=== PATIENT | female | born 1955 | race Hispanic/Latino ===

== ENCOUNTER 2024-08-02 11:45 | Emergency (ER) | payer OTHER ==
--- OUTSIDE RECORDS SUMMARY | 2024-08-02 11:49 | XMS REPORT | Continuity of Care Document ---
Author Name Unknown Address [address] [facility] [place] [address] [facility] Address [address] [facility] [address] [place] [address] Care Team Providers Care Hat Cleaner Name Role Phone CLIVE CASE Primary Care Physician Unavailab MAYKEL James Attending Clinician Unavailab KACEY Carcamo Attending Clinician UnavailSUNIL William Attending Clinician Unavailable Zuniga_F Attending Clinician Unavailable Andria Attending Clinician Unavailable CHIDI FISHER Attending Clinician Unavailable LUISANA SIMMS Attending Clinician Unavailab jessica Lares Attending Clinician Unavailable Hollie Attending Clinician Unavailable DR CLIVE CASE Attending Clinician Unavailable [phone] Attending Clinician Unavailable JASON Attending Clinician Unavailable ISABELL MASSEY Attending Clinician Unavaila karen IHDE_G Attending Clinician Unavailable BHAVANI LARKIN Attending Clinician Unavailmelva e Zunjohanna_S Attending Clinician Unavailable Rae Attending Clinician Unavailable JOHN RAMOS Attending Clinician Unavailab JUSTIN James Attending Clinician Unavaila JAH Herman Attending Clinician Unavailable Sabiha Attending Clinician Unavailable Zuniga_F Admitting Clinician Unavailable Andria Admitting Clinician Unavailable Luda Admitting Clinician Unavailable Hollie Admitting Clinician Unavailable DR CLIVE CASE Admitting Clinician Unavailable ALEXANDREA_ANGIE Admitting Clinician Unavailable IHDE_G Admitting Clinician Unavailable Zunjohanna_S Admitting Clinician Unavailable Rae Admitting Clinician Unavailable JAH SNEED Admitting Clinician Unavailable Sabiha Admitting Clinician Unavailable Payers Payer Name Policy Type Policy Number Effective Date Expirati on Date Source MEDICARE - OP [id number] MEDICARE - OP [id number] MEDICARE - OP [id number] MEDICARE - OP [id number] MEDICARE - OP [id number] MEDICARE - OP [id number] [employer] MEDICARE Medicare [id number] 2024 00:00:00 [place]IG[place] (MEDICARE REPLACEMENT/ADVANTA GE - HMO) [id number] 2022 00:00:00 [place] [id number] [place] [facility] [id number] [place] (MEDIC[place]ACEMENT/ADVANTA GE - HMO) [id number] 2021 00:00:00 [employer] (MEDICARE REPLACEMENT PPO) [id number] 2020 00:00:00 Problems Condition Name Condition Details Condition Category Status Onset Date Resolution Date Last Treatment Date Treating Clinician Comments Source Acute bacterial bronchitis Acute Bacterial Bronchitis Problem Active 2022-04 00:00: 00 [facility] Headache Headache Problem Active 2022-04 00:00: 00 [facility] Pain of left shoulder blade Pain of Left Shoulder Blade Problem Active 2022-04 00:00: 00 [facility] Tobacco dependence caused by cigarettes Tobacco Dependence Caused by Cigarettes Problem Active 10-30 00:00: 00 [facility] Cataract of right eye Cataract of Right Eye Problem Active 10-30 00:00: 00 [facility] Pain co-occurre nt and due to varicose veins of bilateral legs Pain Co-occurre nt and Due to Varicose Veins of Bilateral Legs Problem Active 07-01 00:00: 00 [facility] Pain of right calf Pain of Right Calf Problem Active 07-01 00:00: 00 [facility] Blood in urine Blood in Urine Problem Active 05-11 00:00: 00 [facility] Left flank pain Left Flank Pain Problem Active 05-11 00:00: 00 [facility] Allergies, Adverse Reactions, Alerts Allergy Name Allergy Type Status Severity Reaction(s) Onset Date Inactive Date Treating Clinician Comments Source TRAMADOL HCL Allergy to substanc e Active 2-13 00:00: 00 [facility] Tylenol- codeine #3 Allergy to substanc e Active Irregular heart rate [facility] Tramadol Allergy to substanc e Active Moderate severity Vomiting [facility] TRAMADOL DA Active MODERATE Vomiting [facility] No Known Food Allergie s MA Active UNKNOWN [facility] Social History Smoking Status Start Date Stop Date Source Light Tobacco Smoker [facility] Medications Ordered Medication Name Filled Medication Name Start Date Stop Date Current Medication? Ordering Clinician Indication Dosage Frequency Signature (SIG) Comments Components Source Flonase Allergy Relief 50 mcg/actuati on nasal spray,suspe nsion [place] 1 spray every day by intranasal route for 90 days. Flonase Allergy Relief 50 mcg/actuati on nasal spray,suspe nsion [place] 1 spray every day by intranasal route for 90 days. No 1spray( s) Q1D Flonase Allergy Relief 50 mcg/actuat ion nasal spray,susp ension [place] 1 spray every day by intranasal route for 90 days. [facility] loratadine 10 mg tablet TAKE 1 TABLET BY MOUTH ONCE DAILY loratadine 10 mg tablet TAKE 1 TABLET BY MOUTH ONCE DAILY No 1 Q1D loratadine 10 mg tablet TAKE 1 TABLET BY MOUTH ONCE DAILY [facility] meloxicam 15 mg tablet Take 1 tablet(s) every day by oral route as needed for 90 days. meloxicam 15 mg tablet Take 1 tablet(s) every day by oral route as needed for 90 days. No meloxicam 15 mg tablet Take 1 tablet(s) every day by oral route as needed for 90 days. [facility] pantoprazol e 40 mg tablet,marianne yed release pantoprazol e 40 mg tablet,marianne yed release No pantoprazo le 40 mg tablet,del ayed release [facility] Immunizations Ordered Immunization Name Filled Immunization Name Date Status Comments Source Influenza vaccine, quadrivalent, adjuvanted Influenza vaccine, quadrivalent, adjuvanted Unknown Completed [facility] influenza, unspecified formulation influenza, unspecified formulation Unknown Completed [facility] Pneumococcal conjugate PCV20, polysaccharide [id number] conjugate, adjuvant, PF Pneumococcal conjugate PCV20, polysaccharide [id number] conjugate, adjuvant, PF Unknown Completed [facility] COVID-19, mRNA, LNP-S, PF, 30 mcg/0.3 mL dose (Pfizer-BioNTech) - ML COVID-19, mRNA, LNP-S, PF, 30 mcg/0.3 mL dose (Pfizer-BioNTech) - ML Unknown Completed [facility] pneumococcal conjugate PCV 13 pneumococcal conjugate PCV 13 Unknown Completed [facility] influenza, high dose seasonal influenza, high dose seasonal Unknown Completed [facility] Vital Signs Vital Name Observation Time Observation Value Comments S ource BP Diastolic 2024-04-21 00:00:00 72 mm[Hg] [facility] Body Weight 2024-04-21 00:00:00 2215 [oz_av] [facility] Height 2024-04-21 00:00:00 64 [in_i] [facility] BP Systolic 2024-04-21 00:00:00 140 mm[Hg] [facility] BMI (Body Mass Index) 2024-04-21 00:00:00 23.8 kg/m2 [facility] BP Diastolic 2024-04-14 00:00:00 69 mm[Hg] [facility] BP Systolic 2024-04-14 00:00:00 149 mm[Hg] [facility] BMI (Body Mass Index) 2024-04-14 00:00:00 24.1 kg/m2 [facility] Body Weight 2024-04-14 00:00:00 2247 [oz_av] [facility] Height 2024-04-14 00:00:00 64 [in_i] [facility] BMI (Body Mass Index) 2024-03-28 00:00:00 24.2 kg/m2 [facility] BP Diastolic 2024-03-28 00:00:00 64 mm[Hg] [facility] BP Systolic 2024-03-28 00:00:00 126 mm[Hg] [facility] Height 2024-03-28 00:00:00 64 [in_i] [facility] Body Weight 2024-03-28 00:00:00 2256 [oz_av] [facility] BP Diastolic 2023-12-02 00:00:00 61 mm[Hg] [facility] BP Systolic 2023-12-02 00:00:00 117 mm[Hg] [facility] BMI (Body Mass Index) 2023-12-02 00:00:00 24 kg/m2 [facility] Body Weight 2023-12-02 00:00:00 2240 [oz_av] [facility] Height 2023-12-02 00:00:00 64 [in_i] [facility] Body Weight 2023-07-06 00:00:00 2320 [oz_av] [facility] BP Systolic 2023-07-06 00:00:00 140 mm[Hg] [facility] BMI (Body Mass Index) 2023-07-06 00:00:00 24.9 kg/m2 [facility] BP Diastolic 2023-07-06 00:00:00 75 mm[Hg] [facility] Height 2023-07-06 00:00:00 64 [in_i] [facility] Body Weight 2023-04-16 00:00:00 143.1 [lb_av] [facility] Height 2023-04-16 00:00:00 64 [in_i] [facility] BMI (Body Mass Index) 2023-04-16 00:00:00 24.6 kg/m2 [facility] BP Diastolic 2023-04-16 00:00:00 82 mm[Hg] [facility] BP Systolic 2023-04-16 00:00:00 146 mm[Hg] [facility] BP Systolic 2023-03-04 00:00:00 125 mm[Hg] [facility] BMI (Body Mass Index) 2023-03-04 00:00:00 24.7 kg/m2 [facility] Height 2023-03-04 00:00:00 64 [in_i] [facility] Body Weight 2023-03-04 00:00:00 143.8 [lb_av] [facility] BP Diastolic 2023-03-04 00:00:00 69 mm[Hg] [facility] Body Weight 2023-02-27 00:00:00 2275 [oz_av] [facility] BP Systolic 2023-02-27 00:00:00 130 mm[Hg] [facility] Height 2023-02-27 00:00:00 64 [in_i] [facility] BP Diastolic 2023-02-27 00:00:00 75 mm[Hg] [facility] BMI (Body Mass Index) 2023-02-27 00:00:00 24.4 kg/m2 [facility] Body Weight 2023-02-13 00:00:00 2288 [oz_av] [facility] Height 2023-02-13 00:00:00 64 [in_i] [facility] BP Systolic 2023-02-13 00:00:00 138 mm[Hg] [facility] BP Diastolic 2023-02-13 00:00:00 88 mm[Hg] [facility] BMI (Body Mass Index) 2023-02-13 00:00:00 24.5 kg/m2 [facility] BP Systolic 2023-01-21 00:00:00 137 mm[Hg] [facility] Body Weight 2023-01-21 00:00:00 141.6 [lb_av] [facility] Height 2023-01-21 00:00:00 64 [in_i] [facility] BMI (Body Mass Index) 2023-01-21 00:00:00 24.3 kg/m2 [facility] BP Diastolic 2023-01-21 00:00:00 80 mm[Hg] [facility] Body Weight 2022-12-24 00:00:00 2292 [oz_av] [facility] BP Systolic 2022-12-24 00:00:00 179 mm[Hg] [facility] BP Diastolic 2022-12-24 00:00:00 81 mm[Hg] [facility] BMI (Body Mass Index) 2022-12-24 00:00:00 24.6 kg/m2 [facility] Height 2022-12-24 00:00:00 64 [in_i] [facility] BP Diastolic 2022-10-30 00:00:00 81 mm[Hg] [facility] Height 2022-10-30 00:00:00 64 [in_i] [facility] BMI (Body Mass Index) 2022-10-30 00:00:00 23.8 kg/m2 [facility] BP Systolic 2022-10-30 00:00:00 130 mm[Hg] [facility] Body Weight 2022-10-30 00:00:00 2215 [oz_av] [facility] BP Diastolic 2022-08-28 00:00:00 74 mm[Hg] [facility] Height 2022-08-28 00:00:00 64 [in_i] [facility] BMI (Body Mass Index) 2022-08-28 00:00:00 24.5 kg/m2 [facility] BP Systolic 2022-08-28 00:00:00 167 mm[Hg] [facility] Body Weight 2022-08-28 00:00:00 2288 [oz_av] [facility] BP Diastolic 2022-08-14 00:00:00 73 mm[Hg] [facility] Height 2022-08-14 00:00:00 64 [in_i] [facility] BMI (Body Mass Index) 2022-08-14 00:00:00 24.6 kg/m2 [facility] BP Systolic 2022-08-14 00:00:00 128 mm[Hg] [facility] Body Weight 2022-08-14 00:00:00 2296 [oz_av] [facility] BP Diastolic 2022-07-08 00:00:00 68 mm[Hg] [facility] Height 2022-07-08 00:00:00 64 [in_i] [facility] BMI (Body Mass Index) 2022-07-08 00:00:00 24.2 kg/m2 [facility] BP Systolic 2022-07-08 00:00:00 152 mm[Hg] [facility] Body Weight 2022-07-08 00:00:00 141 [lb_av] [facility] BP Diastolic 2022-06-24 00:00:00 73 mm[Hg] [facility] Height 2022-06-24 00:00:00 64 [in_i] [facility] BMI (Body Mass Index) 2022-06-24 00:00:00 25.1 kg/m2 [facility] BP Systolic 2022-06-24 00:00:00 166 mm[Hg] [facility] Body Weight 2022-06-24 00:00:00 2336 [oz_av] [facility] BP Diastolic 2022-06-11 00:00:00 71 mm[Hg] [facility] Height 2022-06-11 00:00:00 64 [in_i] [facility] BMI (Body Mass Index) 2022-06-11 00:00:00 24.5 kg/m2 [facility] BP Systolic 2022-06-11 00:00:00 130 mm[Hg] [facility] Body Weight 2022-06-11 00:00:00 2288 [oz_av] [facility] BP Diastolic 2021-07-18 00:00:00 74 mm[Hg] [facility] Height 2021-07-18 00:00:00 64 [in_i] [facility] BMI (Body Mass Index) 2021-07-18 00:00:00 25.2 kg/m2 [facility] BP Systolic 2021-07-18 00:00:00 140 mm[Hg] [facility] Body Weight 2021-07-18 00:00:00 2345 [oz_av] [facility] BP Diastolic 2021-07-16 00:00:00 70.01 mm[Hg] [facility] Height 2021-07-16 00:00:00 64 [in_i] [facility] BMI (Body Mass Index) 2021-07-16 00:00:00 25.1 kg/m2 [facility] BP Systolic 2021-07-16 00:00:00 135 mm[Hg] [facility] Body Weight 2021-07-16 00:00:00 2336 [oz_av] [facility] BP Diastolic 2021-07-04 00:00:00 82 mm[Hg] [facility] Height 2021-07-04 00:00:00 64 [in_i] [facility] BMI (Body Mass Index) 2021-07-04 00:00:00 25.4 kg/m2 [facility] BP Systolic 2021-07-04 00:00:00 167 mm[Hg] [facility] Body Weight 2021-07-04 00:00:00 148 [lb_av] [facility] BP Diastolic 2021-07-01 00:00:00 82 mm[Hg] [facility] Height 2021-07-01 00:00:00 64 [in_i] [facility] BMI (Body Mass Index) 2021-07-01 00:00:00 24.9 kg/m2 [facility] BP Systolic 2021-07-01 00:00:00 144 mm[Hg] [facility] Body Weight 2021-07-01 00:00:00 2320 [oz_av] [facility] BP Diastolic 2021-06-18 00:00:00 88 mm[Hg] [facility] Height 2021-06-18 00:00:00 64 [in_i] [facility] BMI (Body Mass Index) 2021-06-18 00:00:00 25.6 kg/m2 [facility] BP Systolic 2021-06-18 00:00:00 149 mm[Hg] [facility] Body Weight 2021-06-18 00:00:00 2386 [oz_av] [facility] BP Diastolic 2020-09-24 00:00:00 72 mm[Hg] [facility] Height 2020-09-24 00:00:00 64 [in_i] [facility] BMI (Body Mass Index) 2020-09-24 00:00:00 25.7 kg/m2 [facility] BP Systolic 2020-09-24 00:00:00 118 mm[Hg] [facility] Body Weight 2020-09-24 00:00:00 2400 [oz_av] [facility] BP Diastolic 2020-08-23 00:00:00 75 mm[Hg] [facility] Height 2020-08-23 00:00:00 64 [in_i] [facility] BMI (Body Mass Index) 2020-08-23 00:00:00 25.6 kg/m2 [facility] BP Systolic 2020-08-23 00:00:00 151 mm[Hg] [facility] Body Weight 2020-08-23 00:00:00 2388 [oz_av] [facility] BP Diastolic 2020-08-14 00:00:00 81 mm[Hg] [facility] Height 2020-08-14 00:00:00 64 [in_i] [facility] BMI (Body Mass Index) 2020-08-14 00:00:00 25.6 kg/m2 [facility] BP Systolic 2020-08-14 00:00:00 133 mm[Hg] [facility] Body Weight 2020-08-14 00:00:00 149 [lb_av] [facility] BP Diastolic 2020-08-01 00:00:00 72 mm[Hg] [facility] Height 2020-08-01 00:00:00 64 [in_i] [facility] BMI (Body Mass Index) 2020-08-01 00:00:00 26 kg/m2 [facility] BP Systolic 2020-08-01 00:00:00 149 mm[Hg] [facility] Body Weight 2020-08-01 00:00:00 151.2 [lb_av] [facility] Procedures Procedure Date / Time Performed Performing Clinician Source MAMMO, screening, digital, bilateral 2024-03-28 00:00:00 [facility] Colonoscopy 2024-02-23 00:00:00 [facility] Endoscopy 2024-01-26 00:00:00 [facility] Resect Inferior Turbinate 2023-04-09 00:00:00 [facility] Repair of Nasal Septum 2023-04-09 00:00:00 [facility] LDCT, chest, for lung cancer screening 2023-02-27 00:00:00 [facility] DEXA 2023-02-27 [facility], screening, digital, bilateral 2023-02-27 00:00:00 [facility] XR, scapula 2023-02-13 00:00:00 [facility] Xcapsl Ctrc Rmvl Cplx Wo Ecp 2022-11-24 00:00:00 [facility] Cataract Surgery 2022-11-24 00:00:00 [facility] Cataract Surgery 2022-10-24 00:00:00 [facility] MAMMO, screening, digital, bilateral 2022-08-14 00:00:00 [facility] DEXA 2022-08-01 00:00:00 [facility] MAMMO, screening, digital, bilateral 2022-08-01 00:00:00 [facility] DEXA 2022-06-27 00:00:00 [facility] MAMMO, screening, digital, bilateral 2022-06-27 00:00:00 [facility] XR, knee 2022-06-11 00:00:00 [facility] DEXA 2022-05-23 00:00:00 [facility] MAMMO, screening, digital, bilateral 2022-05-23 00:00:00 [facility] unlisted imaging order 2021-07-04 00:00:00 [facility] US, doppler, venous 2021-07-01 00:00:00 [facility] MAMMO, screening, digital, bilateral 2020-09-24 00:00:00 [facility] Cholecystectomy [facility] Biopsy of Liver [facility] Operative Procedure on Knee [facility] Hysterectomy [facility] Encounters Start Date/Time End Date/Time Encounter Type Admission Type Attending Clinicians Care Facility Care Department Encounter ID Source 2022-03-28 14:41:17 Outpatient ELCAMPO ELCAMPO [id number] [facility] 2024-05-26 16:45:00 2024-05-26 16:45:00 Outpatient MAYKEL DAS [facility] [id number] [facility] 2024-04-21 00:00:00 2024-04-21 00:00:00 Maykel Cross MD: [address] [place] [address] , Ph. [facility] [id number] [facility] 2024-04-14 00:00:00 2024-04-14 00:00:00 Maykel Cross MD: [address], [place] [address] , Ph. [facility] [id number] [facility] 2024-04-07 13:23:00 2024-04-07 15:48:00 Emergency TR KACEY COATS [facility] [id number] [facility] 2024-03-28 13:41:00 2024-03-28 13:41:00 Outpatient LUZ USNIL SKINNER [facility] [id number] [facility] 2024-03-28 00:00:00 2024-03-28 00:00:00 Maykel Cross MD: [address], [place] [id number] , [place]. [facility] [id number] [facility] 2024-03-23 11:03:51 2024-03-23 14:17:10 Outpatient Elective MHEOUT MHEOUT [id number] [facility] 2023-12-02 00:00:00 2023-12-02 00:00:00 Maykel Cross MD: [address] Jones, [place] [address] , Ph. [facility] [id number] [facility] 2023-07-06 00:00:00 2023-07-06 00:00:00 Maykel Cross MD: [address] [place] [address] , Ph. [facility] [id number] [facility] 2023-07-03 00:00:00 2023-07-03 00:00:00 [place] [id number] [facility] 2023-04-16 00:00:00 2023-04-16 00:00:00 [place] [id number] [facility] 2023-04-16 00:00:00 2023-04-16 00:00:00 Chidi Fisher MD: [address] [place] [address], [address] [address] , [facility]. [facility] [id number] [facility] 2023-04-09 08:10:00 2023-04-09 08:10:00 Outpatient LUZ CHIDI FISHER [facility] [id number] [facility] 2023-04-07 00:00:00 2023-04-07 00:00:00 Outpatient Yan_W [facility] [id number] [facility] 2023-03-26 10:34:00 2023-03-26 10:34:00 Outpatient MAYKEL DAS [facility] [id number] [facility] 2023-03-12 09:43:00 2023-03-12 09:43:00 Outpatient MAYKEL DAS [facility] [id number] [facility] 2023-03-04 00:00:00 2023-03-04 00:00:00 Outpatient Yan_W MMG MMG [id number] [facility] 2023-03-04 00:00:00 2023-03-04 00:00:00 Outpatient Yan_W MMG MMG [id number] [facility] 2023-03-04 00:00:00 2023-03-04 00:00:00 Outpatient Yan_W MMG MMG [id number] [facility] 2023-03-04 00:00:00 2023-03-04 00:00:00 Chidi Fisher MD: [address], [address], [place] [phone] , Ph. [facility] - Otolaryngol ogy-MOB [id number] [facility] 2023-03-03 00:00:00 2023-03-03 00:00:00 Outpatient Yan_W MMG MMG [id number] [facility] 2023-02-27 00:00:00 2023-02-27 00:00:00 Maykel Cross MD: [address], [address], [place] [address] , Ph. MMG [facility] [id number] [facility] 2023-02-25 00:00:00 2023-02-25 00:00:00 Outpatient Yan_W MMG MMG [id number] [facility] 2023-02-17 00:00:00 2023-02-17 00:00:00 Outpatient Yan_W MMG MMG [id number] [facility] 2023-02-13 16:26:00 2023-02-13 16:26:00 Outpatient LUISANA CHRISTENSEN [facility] [id number] [facility] 2023-02-13 00:00:00 2023-02-13 00:00:00 Outpatient Yan_W MMG MMG [id number] [facility] 2023-02-13 00:00:00 2023-02-13 00:00:00 Luisana Simms NP: [address], [address], [place] [address] , Ph. MM[facility] [id number] [facility] 2023-01-21 00:00:00 2023-01-21 00:00:00 Outpatient Yan_W MMG MMG [id number] [facility] 2023-01-21 00:00:00 2023-01-21 00:00:00 Outpatient Yan_W MMG MMG [id number] [facility] 2023-01-21 00:00:00 2023-01-21 00:00:00 Chidi Fisher MD: [address], [address], [place] [address] , Ph. [facility] - Otolaryngol ogy-MOB [id number] [facility] 2023-01-01 00:00:00 2023-01-01 00:00:00 Outpatient Yan_W MMG MMG [id number] [facility] 2022-12-26 00:00:00 2022-12-26 00:00:00 Outpatient Yan_W MMG MMG [id number] [facility] 2022-12-24 00:00:00 2022-12-24 00:00:00 Outpatient Zuniga_F MMG MMG [id number] [facility] 2022-12-24 00:00:00 2022-12-24 00:00:00 Maykel Cross MD: [address], [address], [place] [address] , Ph. MM[facility] [id number] [facility] 2022-10-30 08:55:00 2022-10-30 08:55:00 Outpatient LUISANA CHAVEZ [facility] [id number] [facility] 2022-10-30 00:00:00 2022-10-30 00:00:00 Outpatient Wu_M MMG MMG [id number] [facility] [facility] 2022-10-30 00:00:00 2022-10-30 00:00:00 Luisana Simms, REGULATORY AND COMPLIANCE TECHNICIAN: [address], [address], [place] [address] , Ph. MMG [facility] [id number] [facility] 2022-08-28 00:00:00 2022-08-28 00:00:00 Maykel Cross MD: [address], [address], [place] [address] , Ph. MMG [facility] [id number] [facility] 2022-08-15 08:07:00 2022-08-15 08:07:00 Outpatient MAYKEL DAS [facility] [id number] [facility] 2022-08-14 00:00:00 2022-08-14 00:00:00 Outpatient Zuniga_F MMG MMG [id number] [facility] 2022-08-14 00:00:00 2022-08-14 00:00:00 Outpatient Zuniga_F MMG MMG [id number] [facility] 2022-08-14 00:00:00 2022-08-14 00:00:00 Outpatient Zuniga_F MMG MMG [id number] [facility] 2022-08-14 00:00:00 2022-08-14 00:00:00 Maykel Cross MD: [address], [address], [place] [address] , Ph. MMG [facility] [id number] [facility] 2022-08-02 00:00:00 2022-08-02 00:00:00 Outpatient cMcDonald MMG MMG [id number] [facility] 2022-07-08 00:00:00 2022-07-08 00:00:00 [place] [id number] [facility] 2022-07-08 00:00:00 2022-07-08 00:00:00 Outpatient cMcDonald MMG MMG [id number] [facility] 2022-07-08 00:00:00 2022-07-08 00:00:00 Seng Phoenix MD: [address], [address], [place] [address] , [facility] [place] [facility] [id number] [facility] 2022-06-25 00:00:00 2022-06-25 00:00:00 Outpatient cMcDonald MMG [facility] [id number] [facility] 2022-06-24 00:00:00 2022-06-24 00:00:00 Maykel Cross MD: [address], [address], [place] [address] , [facility]. [facility] [place] [facility] [id number] [facility] 2022-06-12 15:44:00 2022-06-12 15:44:00 Outpatient MAYKEL DAS [facility] [id number] [facility] 2022-06-11 00:00:00 2022-06-11 00:00:00 Outpatient Zuniga_F MMG [facility] [id number] [facility] 2022-06-11 00:00:00 2022-06-11 00:00:00 Outpatient Zuniga_F MMG MMG [id number] [facility] 2022-06-11 00:00:00 2022-06-11 00:00:00 Maykel Cross MD: [address], [address], [place] [address] , Ph. [facility] [id number] [facility] 2022-03-28 14:16:00 2022-03-28 17:10:00 Emergency CLIVE LEON [id number] [facility] EMERGENCY ROOM [id number] [facility] 2021-11-11 00:00:00 2021-11-11 00:00:00 Outpatient CHANELREEN_JUAN [facility] [id number] [facility] 2021-08-08 09:48:00 2021-08-08 09:48:00 Outpatient ISABELL DESIR [facility] [id number] [facility] 2021-07-23 08:15:00 2021-07-23 08:15:00 Outpatient ISABELL DESIR [facility] [id number] [facility] 2021-07-21 01:05:00 2021-07-21 01:05:00 [facility] [id number] [facility] 2021-07-18 02:56:00 2021-07-18 02:56:00 Outpatient Zuniga_F MMG [facility] [id number] [facility] 2021-07-18 02:56:00 2021-07-18 02:56:00 [facility] [id number] [facility] 2021-07-18 00:00:00 2021-07-18 00:00:00 Maykel Cross MD: [address] [place] [address] [address], [place] [address] , Ph. [facility] [id number] [facility] 2021-07-16 14:17:00 2021-07-16 14:17:00 Outpatient MAYKEL DAS [facility] [id number] [facility] 2021-07-16 02:11:00 2021-07-16 02:11:00 [place] [id number] [facility] 2021-07-16 00:00:00 2021-07-16 00:00:00 Maykel Cross MD: [address], [place] [address] , Ph. [facility] [id number] [facility] 2021-07-15 01:04:00 2021-07-15 01:04:00 Outpatient IHDE_G MMG MMG [id number] [facility] 2021-07-08 05:42:00 2021-07-08 05:42:00 Outpatient IHDE_G MMG MMG [id number] [facility] 2021-07-06 19:42:00 2021-07-06 22:05:00 Emergency ER BHAVANI LARKIN [facility] [id number] [facility] 2021-07-05 05:10:00 2021-07-05 05:10:00 Outpatient IHDE_G MMG MMG [id number] [facility] 2021-07-05 01:57:00 2021-07-05 01:57:00 Outpatient IHDE_G MMG MMG [id number] [facility] 2021-07-04 05:13:00 2021-07-04 05:13:00 Outpatient IHDE_G MMG MMG [id number] [facility] 2021-07-04 00:00:00 2021-07-04 00:00:00 Isabell Massey MD: [address], [place] [address] , Ph. [phone] [facility] [id number] [facility] 2021-07-01 15:03:00 2021-07-01 15:03:00 Outpatient UR MAYKEL CROSS [facility] [id number] [facility] 2021-07-01 03:11:00 2021-07-01 03:11:00 Outpatient Zuniga_S MMG [facility] [id number] [facility] 2021-07-01 03:11:00 2021-07-01 03:11:00 Outpatient Zuniga_S MMG [facility] [id number] [facility] 2021-07-01 00:00:00 2021-07-01 00:00:00 KELLY Veliz: [address] [address] , Ph. [facility] [id number] [facility] 2021-06-18 04:16:00 2021-06-18 04:16:00 [facility] [id number] [facility] 2021-06-18 00:00:00 2021-06-18 00:00:00 Maykel Cross MD: [address] [place] [address] , Ph. [facility] [id number] [facility] 2021-05-26 14:54:00 2021-05-26 17:15:00 Emergency ER JOHN RAMOS [facility] [id number] [facility] 2021-05-10 09:00:00 2021-05-10 09:00:00 Outpatient UR CROSSJUSTIN WARD [facility] [id number] [facility] 2021-05-10 04:27:00 2021-05-10 04:27:00 Outpatient Koudela_A MMG [facility] [id number] [facility] 2021-05-10 04:27:00 2021-05-10 04:27:00 Outpatient Koudela_A MMG [facility] [id number] [facility] 2020-11-15 03:41:00 2020-11-15 03:41:00 Outpatient Koudela_A MMG [facility] [id number] [facility] 2020-10-26 14:03:00 2020-10-26 14:03:00 Outpatient MAYKEL DAS [facility] [id number] [facility] 2020-10-03 14:46:00 2020-10-03 14:46:00 Outpatient MAYKEL DAS [facility] [id number] [facility] 2020-09-24 03:49:00 2020-09-24 03:49:00 Outpatient Zuniga_F [facility] [id number] [facility] 2020-09-24 00:00:00 2020-09-24 00:00:00 Maykel Cross MD: [address] [place] [address] , [facility] [id number] [facility] 2020-08-23 02:48:00 2020-08-23 02:48:00 Outpatient Zuniga_F [facility] [id number] [facility] 2020-08-23 00:00:00 2020-08-23 00:00:00 Maykel Cross MD: [address], [place] [address] , Ph. [facility] [id number] [facility] 2020-08-15 01:06:00 2020-08-15 01:06:00 [facility] [id number] [facility] 2020-08-14 14:31:00 2020-08-14 14:31:00 Outpatient EL CHIDI FISHER [facility] [id number] [facility] 2020-08-14 02:33:00 2020-08-14 02:33:00 Outpatient Yan_W MMG MMG [id number] [facility] 2020-08-14 00:00:00 2020-08-14 00:00:00 Chidi Fisher MD: [address], [address], [place] [address] , [facility] [id number] [facility] 2020-08-01 21:04:00 2020-08-02 18:17:00 Inpatient ER JAH SNEED [facility] [id number] [facility] 2020-08-02 01:37:00 2020-08-02 01:37:00 Outpatient Yan_W MMG MMG [id number] [facility] 2020-08-01 02:49:00 2020-08-01 02:49:00 Outpatient Yan_W MMG MMG [id number] [facility] 2020-08-01 00:00:00 2020-08-01 00:00:00 Chidi Fisher MD: [address], [place] [address] , [facility]. [facility] [id number] [facility] 2020-07-31 04:00:00 2020-07-31 04:00:00 Outpatient Yan_W MMG MMG [id number] [facility] 2020-07-20 11:32:00 2020-07-20 11:32:00 Outpatient White_M MMG MMG [id number] [facility] Results Test Description Test Time Test Comments Results Result Co mments Source [facility] [id number] 13:39:00* Test Item Value Reference Range Interpretation Comme [facility] blood collection (test code = [facility] blood collection) [facility] 2000 [facility] - Serum or Plasma 2023-04-03 10:26:00* Test Item Value Reference Range Interpretation Comme [facility] glucose (test code = glucose) 100 mg/dL 82-115 blood urea nitrogen (test co de = blood urea nitrogen) 16 mg/dL 8-23 osmolality calculated,serum (test code = osmolality calculated,serum) 281 mOsm/kg 280-300 creatinine (test code = creatinine) 0.60 mg/dL 0.50-0.90 glomerular filtration rate ( test code = glomerular filtration rate) > 60.00 BUN/creatinine ratio (test c ode = BUN/creatinine ratio) 26.7 12.0-20.0 H sodium level (test code = so dium level) 140 mmol/L 135-145 potassium level (test code = potassium level) 4.0 mmol/L 3.5-5.2 chloride level (test code = chloride level) 106 mmol/L 98-108 CO2 (test code = CO2) 24 mmol/L 21-32 anion gap (test code = anion gap) 14.0 mEq/L 12.0-20.0 calcium level (test code = calcium level) 9.7 mg/dL 8.8-10.2 total protein (test code = t otal protein) 6.3 g/dL 6.6-8.7 L albumin (test code = albumin) 4.0 g/dL 3.5-5.2 globulin (test code = globulin) 2.3 g/dL 1.5-4.5 A/G ratio (test code = A/G ratio) 1.7 >1.0 bilirubin,total (test code = bilirubin,total) 0.4 mg/dL 0.0-1.2 AST/SGOT (test code = AST/SGOT) 21 U/L 15-32 ALT/SGPT (test code = ALT/SGPT) 13 U/L 0-33 alkaline phosphatase, total (test code = alkaline phosphatase, total) 99 U/L 35-105 [id number] 10:21:00* Test Item Value Reference Range Interpretation Comme nts prothrombin time (test code = prothrombin time) 10.4 seconds 10.3-12.3 INR (test code = INR) < 0.94 [facility] [id number] 10:21:00* Test Item Value Reference Range Interpretation Comme nts partial thromboplastin time (test code = partial thromboplastin time) 28.2 seconds 22.5-37.0 [facility] W Auto Differential panel - [id number] 10:07:00 * Test Item Value Reference Range Interpretation Comme nts white blood count (test code = white blood count) 5.4 K/uL 4.0-11.5 red blood count (test code = red blood count) 3.90 M/uL 3.80-5.20 hemoglobin (test code = hemoglobin) 12.0 g/dL 10.5-15.7 hematocrit (test code = hematocrit) 36.1 % 34.0-50.0 mean corpuscular volume (conrad t code = mean corpuscular volume) 92.6 fL 86.0-100.0 mean corpuscular hemoglobin (test code = mean corpuscular hemoglobin) 30.8 pg 26.2-33.4 mean corpuscular HGB conc (t est code = mean corpuscular HGB conc) 33.2 g/dL 30.0-34.0 red cell distribution width (test code = red cell distribution width) 13.2 % 12.0-15.5 platelet count (test code = platelet count) 167 K/uL 165-450 mean platelet volume (test c ode = mean platelet volume) 9.1 fL 9.4-12.6 L neutrophils % (test code = neutrophils %) 53.5 % 44.4-80.1 Ig% (test code = Ig%) 0.6 % 0.0-0.4 H lymphocyte% (test code = lymphocyte%) 25.6 % 10.0-50.0 mono % (test code = mono %) 7.8 % 3.6-12.0 eos % (test code = eos %) 11.9 % 0.0-5.4 H basophil % (test code = baso reva %) 0.6 % 0.1-1.2 absolute neutrophil count (t est code = absolute neutrophil count) 2.87 K/uL 1.56-6.13 Ig# (test code = Ig#) 0.03 K/uL 0.00-0.03 lymph # (test code = lymph #) 1.37 K/uL 1.18-3.74 mono # (test code = mono #) 0.42 K/uL 0.24-0.86 eos # (test code = eos #) 0.64 K/uL 0.04-0.36 H basophil # (test code = baso reva #) 0.03 K/uL 0.01-0.08 NRBC% (test code = NRBC%) 0 /100 WBC 0-0.2 NRBC# (test code = NRBC#) 0 K/uL [facility]*2023-02-13 15:28:21* Test Item Value Reference Range Interpretation Comme nts R Eye Uncorrected (test code = R Eye Uncorrected) 20/20 L Eye Uncorrected (test code = L Eye Uncorrected) 20/20 [facility] W Auto Differential panel - [id number] 09:14:00 * Test Item Value Reference Range Interpretation Comme nts white blood count (test code = white blood count) 5.1 K/uL 4.0-11.5 red blood count (test code = red blood count) 4.58 M/uL 3.80-5.20 hemoglobin (test code = hemoglobin) 12.3 g/dL 10.5-15.7 hematocrit (test code = hematocrit) 38.2 % 34.0-50.0 mean corpuscular volume (conrad t code = mean corpuscular volume) 83.4 fL 86.0-100.0 L mean corpuscular hemoglobin (test code = mean corpuscular hemoglobin) 26.9 pg 26.2-33.4 mean corpuscular HGB conc (t est code = mean corpuscular HGB conc) 32.2 g/dL 30.0-34.0 red cell distribution width (test code = red cell distribution width) 22.6 % 12.0-15.5 H platelet count (test code = platelet count) 154 K/uL 165-450 L mean platelet volume (test c ode = mean platelet volume) 8.6 fL 9.4-12.6 L neutrophils % (test code = neutrophils %) 47.5 % 44.4-80.1 Ig% (test code = Ig%) 0.4 % 0.0-0.4 lymphocyte% (test code = lymphocyte%) 30.4 % 10.0-50.0 mono % (test code = mono %) 7.9 % 3.6-12.0 eos % (test code = eos %) 13.0 % 0.0-5.4 H basophil % (test code = baso reva %) 0.8 % 0.1-1.2 absolute neutrophil count (t est code = absolute neutrophil count) 2.40 K/uL 1.56-6.13 Ig# (test code = Ig#) 0.02 K/uL 0.00-0.03 lymph # (test code = lymph #) 1.54 K/uL 1.18-3.74 mono # (test code = mono #) 0.40 K/uL 0.24-0.86 eos # (test code = eos #) 0.66 K/uL 0.04-0.36 H basophil # (test code = baso reva #) 0.04 K/uL 0.01-0.08 NRBC% (test code = NRBC%) 0 /100 WBC 0-0.2 NRBC# (test code = NRBC#) 0 K/uL [facility] stimulating hormone [id number] 14:02:00* Test Item Value Reference Range Interpretation Comme nts thyroid stimulating hormone L (test code = thyroid stimulating hormone L) 1.42 uIU/mL 0.36-3.74 [id number] 14:02:00* Test Item Value Reference Range Interpretation Comme nts T4 (test code = T4) 7.5 ug/dL 4.5-11.7 [facility]/TIBC [id number] 14:01:00* Test Item Value Reference Range Interpretation Comme nts iron (fe) (test code = iron (fe)) 13 ug/dL 37-145 L total iron binding capacity (test code = total iron binding capacity) 352 ug/dL 260-445 % saturation (test code = % saturation) 4 % 12-45 L [facility] 2000 panel - Serum or Plasma 2022-08-15 14:00:00* Test Item Value Reference Range Interpretation Comme nts glucose (test code = glucose) 94 mg/dL 82-115 blood urea nitrogen (test co de = blood urea nitrogen) 16 mg/dL 8-23 osmolality calculated,serum (test code = osmolality calculated,serum) 286 mOsm/kg 280-300 creatinine (test code = creatinine) 0.71 mg/dL 0.50-0.90 glomerular filtration rate ( test code = glomerular filtration rate) > 60.00 BUN/creatinine ratio (test c ode = BUN/creatinine ratio) 22.5 12.0-20.0 H sodium level (test code = so dium level) 143 mmol/L 135-145 potassium level (test code = potassium level) 3.9 mmol/L 3.5-5.2 chloride level (test code = chloride level) 109 mmol/L 98-108 H CO2 (test code = CO2) 24 mmol/L 21-32 anion gap (test code = anion gap) 13.9 mEq/L 12.0-20.0 calcium level (test code = calcium level) 9.0 mg/dL 8.8-10.2 total protein (test code = t otal protein) 6.2 g/dL 6.6-8.7 L albumin (test code = albumin) 3.9 g/dL 3.5-5.2 globulin (test code = globulin) 2.3 g/dL 1.5-4.5 A/G ratio (test code = A/G ratio) 1.7 >1.0 bilirubin,total (test code = bilirubin,total) 0.4 mg/dL 0.0-1.2 AST/SGOT (test code = AST/SGOT) 13 U/L 15-32 L ALT/SGPT (test code = ALT/SGPT) 7 U/L 0-33 alkaline phosphatase, total (test code = alkaline phosphatase, total) 101 U/L 35-105 [facility] [id number] 14:00:00* Test Item Value Reference Range Interpretation Comme nts cholesterol level (test code = cholesterol level) 189 mg/dL 150-200 triglycerides level (test co de = triglycerides level) 86 mg/dL <150 HDL cholesterol (test code = HDL cholesterol) 52 mg/dL >65 L Cholesterol in LDL [Mass/vol ume] in Serum or Plasma (test code = 2089-1) 125 mg/dL <100 H cholesterol risk ratio (test code = cholesterol risk ratio) 3.634 [facility]in2023-[facility] 14:00:00* Test Item Value Reference Range Interpretation Comme nts ferritin (test code = ferritin) < 28.5 13-150 [facility] [id number] 13:56:00* Test Item Value Reference Range Interpretation Comme nts Hemoglobin A1c/Hemoglobin.to [place] in Blood (test code = 4548-4) 5.6 % 4.0-6.0 [facility] W Auto Differential panel - [id number] 13:29:00 * Test Item Value Reference Range Interpretation Comme nts white blood count (test code = white blood count) 4.1 K/uL 4.0-11.5 red blood count (test code = red blood count) 3.90 M/uL 3.80-5.20 hemoglobin (test code = hemoglobin) 7.3 g/dL 10.5-15.7 L hematocrit (test code = hematocrit) 26.5 % 34.0-50.0 L mean corpuscular volume (conrad t code = mean corpuscular volume) 67.9 fL 86.0-100.0 L mean corpuscular hemoglobin (test code = mean corpuscular hemoglobin) 18.7 pg 26.2-33.4 L mean corpuscular HGB conc (t est code = mean corpuscular HGB conc) 27.5 g/dL 30.0-34.0 L red cell distribution width (test code = red cell distribution width) 17.0 % 12.0-15.5 H platelet count (test code = platelet count) 282 K/uL 165-450 mean platelet volume (test c ode = mean platelet volume) 9.4 fL 9.4-12.6 neutrophils % (test code = neutrophils %) 54.7 % 44.4-80.1 Ig% (test code = Ig%) 0.2 % 0.0-0.4 lymphocyte% (test code = lymphocyte%) 24.1 % 10.0-50.0 mono % (test code = mono %) 8.3 % 3.6-12.0 eos % (test code = eos %) 12.0 % 0.0-5.4 H basophil % (test code = baso reva %) 0.7 % 0.1-1.2 absolute neutrophil count (t est code = absolute neutrophil count) 2.24 K/uL 1.56-6.13 Ig# (test code = Ig#) 0.01 K/uL 0.00-0.03 lymph # (test code = lymph #) 0.99 K/uL 1.18-3.74 L mono # (test code = mono #) 0.34 K/uL 0.24-0.86 eos # (test code = eos #) 0.49 K/uL 0.04-0.36 H basophil # (test code = baso reva #) 0.03 K/uL 0.01-0.08 NRBC% (test code = NRBC%) 0 /100 WBC 0-0.2 NRBC# (test code = NRBC#) 0 K/uL [facility] HospitalCyclic citrullinated peptide IgA+IgG Ab [Units/volume] in Serum or Plasma by [id number] 15:14:00* Test Item Value Reference Range Interpretation Comme nts ccp antibodies IgG/IgA (test code = ccp antibodies IgG/IgA) 3 units 0-19 [facility] HospitalRheumatoid factor [Units/volume] in Serum or Plasma 2022-06-12 17:21:00* Test Item Value Reference Range Interpretation Comme nts rheum factor (test code = rheum factor) < 10 0-14 [facility] metabolic [id number] 17:20:00* Test Item Value Reference Range Interpretation Comme nts glucose (test code = glucose) 131 mg/dL 82-115 H blood urea nitrogen (test co de = blood urea nitrogen) 18 mg/dL 8-23 osmolality calculated,serum (test code = osmolality calculated,serum) 278 mOsm/kg 280-300 L creatinine (test code = creatinine) 0.67 mg/dL 0.50-0.90 glomerular filtration rate ( test code = glomerular filtration rate) > 60.00 BUN/creatinine ratio (test c ode = BUN/creatinine ratio) 26.9 12.0-20.0 H sodium level (test code = so dium level) 137 mmol/L 135-145 potassium level (test code = potassium level) 3.8 mmol/L 3.5-5.2 chloride level (test code = chloride level) 101 mmol/L 98-108 CO2 (test code = CO2) 26 mmol/L 21-32 anion gap (test code = anion gap) 13.8 mEq/L 12.0-20.0 calcium level (test code = calcium level) 9.3 mg/dL 8.8-10.2 [facility] [id number] 17:20:00* Test Item Value Reference Range Interpretation Comme [facility] uric acid (test code = uric acid) 4.2 mg/dL 2.4-5.7 [facility] W Auto Differential panel - [id number] 12:34:00 * Test Item Value Reference Range Interpretation Comme [facility] white blood count (test code = white blood count) 5.1 K/uL 4.0-11.5 red blood count (test code = red blood count) 4.80 M/uL 3.80-5.20 hemoglobin (test code = hemoglobin) 10.0 g/dL 10.5-15.7 L hematocrit (test code = hematocrit) 34.4 % 34.0-50.0 MCV [Entitic volume] (test c ode = 00806-8) 71.7 fL 86-100 L mean corpuscular hemoglobin (test code = mean corpuscular hemoglobin) 20.8 pg 26.2-33.4 L mean corpuscular HGB conc (t est code = mean corpuscular HGB conc) 29.1 g/dL 30-34 L red cell distribution width (test code = red cell distribution width) 30.6 % 12.0-15.5 H platelet count (test code = platelet count) 236 K/uL 165-450 Platelets reticulated/100 platelets in Blood by Automated count (test code = 55862-8) 3.0 % 0-8 mean platelet volume (test c ode = mean platelet volume) 10.0 fL 9.4-12.6 Segmented neutrophils/100 leukocytes in Blood (test code = 98579-5) 38.7 % 44.4-80.1 L Immature granulocytes [#/vol ume] in Blood (test code = 01619-3) 0.0 K/uL 0.0-0.03 lymphocyte% (test code = lymphocyte%) 36.6 % 10.0-50.0 mono % (test code = mono %) 7.5 % 3.6-12.0 eos % (test code = eos %) 16.4 % 0.0-5.4 H Basophils/100 leukocytes in Unspecified specimen (test code = 79869-8) 0.6 % 0.1-1.2 Band form neutrophils [#/vol ume] in Blood (test code = 01366-0) 1.95 K/uL 1.56-6.13 Lymphocytes [#/volume] in Unspecified specimen by Automated count (test code = 18458-9) 1.9 K/uL 1.18-3.74 mono # (test code = mono #) 0.38 K/uL 0.24-0.86 eos # (test code = eos #) 0.83 K/uL 0.04-0.36 H basophil # (test code = baso reva #) 0.03 K/uL 0.01-0.08 NRBC% (test code = NRBC%) 0 /100 WBC 0-0.2 NRBC# (test code = NRBC#) 0 K/uL [facility] HospitalDifferential panel, method unspecified - [id number] 12:34:00NeutrophilsBandLymphocyteAtypical LymphMonocyteEosinophilBasophilMetamyelocyteMyelocyteAbs Neutrophil Count (Man)Abs Lymph Count (Man)Abs Monocyte Count (Man)Abs Eosinophil Count (Man)Abs Basophil Count (Man)Platelet EstimatePlatelet MorphologyAnisocytosisRouleauToxic VacuolationOcean [facility] HospitalComprehensive metabolic 2000 panel - Serum or [id number] 12:34:00* Test Item Value Reference Range Interpretation Comme nts Glucose [Mass/volume] in Ser um or Plasma (test code = 2345-7) 93 mg/dL 82-115 Urea nitrogen [Mass/volume] in Serum or Plasma (test code = 3094-0) 15 mg/dL 8-23 osmolality calculated,serum (test code = osmolality calculated,serum) 282 mOsm/kg 280-300 creatinine (test code = creatinine) 0.6 mg/dL 0.50-0.90 glomerular filtration rate ( test code = glomerular filtration rate) >60.00 Urea nitrogen/Creatinine [Ma ss Ratio] in Serum or Plasma (test code = 3097-3) 25.0 12-20 H sodium level (test code = so dium level) 141 mmol/L 135-145 potassium level (test code = potassium level) 4.0 mmol/L 3.5-5.2 chloride level (test code = chloride level) 108 mmol/L 98-108 CO2 (test code = CO2) 26 mmol/L 21-32 anion gap (test code = anion gap) 11.0 mEq/L 12-20 L calcium level (test code = calcium level) 9.7 mg/dL 8.8-10.2 total protein (test code = t otal protein) 6.8 g/dL 6.6-8.7 albumin (test code = albumin) 4.1 g/dL 3.5-5.2 globulin (test code = globulin) 2.7 gm/dL A/G ratio (test code = A/G ratio) 1.5 >1.0 bilirubin,total (test code = bilirubin,total) <0.3 0.0-1.2 AST/SGOT (test code = AST/SGOT) 23 U/L 15-32 Alanine aminotransferase [Enzymatic activity/volume] in Serum or Plasma (test code = 1742-6) 16 U/L 0-33 Alkaline phosphatase [Enzyma tic activity/volume] in Serum or Plasma (test code = 6768-6) 138 U/L 35-105 H [facility] [Mass/volume] in Serum or [id number] 12:34:00 * Test Item Value Reference Range Interpretation Comme nts iron (fe) (test code = iron (fe)) 39 ug/dL 37-145 [facility] and Iron binding capacity panel - Serum or Plasma 2020-08-14 12:34:00* Test Item Value Reference Range Interpretation Comme nts total iron binding capacity (test code = total iron binding capacity) 315 ug/dL 260-445 Iron saturation [Molar fract ion] in Serum or Plasma (test code = 21584-8) 12 % 12-45 [facility] - [id number] 12:35:00 * Test Item Value Reference Range Interpretation Comme nts white blood count (test code = white blood count) 7.3 K/uL 4.0-11.5 red blood count (test code = red blood count) 3.51 M/uL 3.80-5.20 L hemoglobin (test code = hemoglobin) 5.8 g/dL 10.5-15.7 L hematocrit (test code = hematocrit) 21.5 % 34.0-50.0 L MCV [Entitic volume] (test c ode = 34057-0) 61.3 fL 86-100 L mean corpuscular hemoglobin (test code = mean corpuscular hemoglobin) 16.5 pg 26.2-33.4 L mean corpuscular HGB conc (t est code = mean corpuscular HGB conc) 27.0 g/dL 30-34 L red cell distribution width (test code = red cell distribution width) 18.9 % 12.0-15.5 H platelet count (test code = platelet count) 318 K/uL 165-450 mean platelet volume (test c ode = mean platelet volume) 9.8 fL 9.4-12.6 NRBC% (test code = NRBC%) 0 /100 WBC 0-0.2 NRBC# (test code = NRBC#) 0 K/uL [facility], method unspecified - [id number] 12:35:00* Test Item Value Reference Range Interpretation Comme nts Neutrophils [#/volume] in Bl ood by Automated count (test code = 751-8) 63 % 37.0-80.0 Band form neutrophils/100 leukocytes in Blood by Manual count (test code = 764-1) 0 % 0-3 lymphocyte (test code = lymphocyte) 27 % 10-50 atypical lymph (test code = atypical lymph) 0 % Monocytes [#/volume] in Bloo d by Manual count (test code = 743-5) 5 % 0-12 eosinophil (test code = eosinophil) 5 % 0-7 Basophils/100 leukocytes in Unspecified specimen by Manual count (test code = 40011-0) 0 % 0-3 metamyelocyte (test code = metamyelocyte) myelocyte (test code = myelocyte) abs neutrophil count (man) ( test code = abs neutrophil count (man)) 4.50 K/uL 1.56-6.13 abs lymph count (man) (test code = abs lymph count (man)) 1.90 K/uL 1.32-3.57 abs monocyte count (man) (te st code = abs monocyte count (man)) 0.30 K/uL 0.24-0.86 abs eosinophil count (man) ( test code = abs eosinophil count (man)) 0.30 K/uL 0.04-0.36 abs basophil count (man) (te st code = abs basophil count (man)) 0.00 K/uL 0.01-0.08 L Platelets [#/volume] in Bloo d by Automated count (test code = 777-3) normal normal Hypochromia [Presence] in Bl ood (test code = 24657-2) =2 H poikilocytosis (test code = poikilocytosis) =1 Anisocytosis [Presence] in B lood (test code = 16935-5) =1 H microcytosis (test code = microcytosis) =1 Ovalocytes [Presence] in Blo od by Light microscopy (test code = 774-0) =1 H Toxic granules [Presence] in Blood by Light microscopy (test code = 803-7) nicole cells (test code = nicole cells) occassional H Neutrophils.hypersegmented [#/volume] in Blood (test code = 01522-4) Rouleaux [Presence] in Blood by Light microscopy (test code = 7797-4) Leukocyte toxic vacuoles [Presence] in Blood by Light microscopy (test code = 42003-8) Smudge cells [Presence] in B lood by Light microscopy (test code = 7798-2) [facility] [Mass/volume] in Serum or [id number] 12:35:00* Test Item Value Reference Range Interpretation Comme nts Pyridoxine [Mass/volume] in Serum or Plasma (test code = 2900-9) 3.0 ug/L 2.0-32.8 [facility]
[2024-08-02 12:32] LABS: Absolute Eosinophils 0.3 K/uL (0-0.5); Absolute Lymphocytes (CBC) 0.9 K/uL (0.7-4.9); Absolute Monocytes 0.5 K/uL (0.1-1.3); Absolute Neutrophil 6.7 K/uL (1.8-8.0); Basophils % 0.3 % (0-1.3); Eosinophils % 4.1 % (0-4.4); Hematocrit 33.9 % (36.0-45.0); Hemoglobin 11.9 g/dL (12.0-15.0); Lymphocytes % 10.8 % (15.3-44.8); MCH 32.1 pg (27.0-35.0); MCHC 34.9 g/dL (32.0-36.0); MCV 91.8 fL (80-100); MPV 7.4 fL (7.6-11.3); Monocytes % 5.9 % (3.3-12.3); Neutrophils % 78.9 % (41.7-73.7); Platelets 254 thou/uL (152-406); Red Cell Distribution Width 13.4 % (12.1-15.2)
[2024-08-02 12:35] LABS: PT Prothrombin Time 12.1 SECONDS (10-13.0); Protime INR 1.06
[2024-08-02 12:48] LABS: Anion Gap 7.8 mEq/L (5.0-15.0); Potassium 3.8 mEq/L (3.5-5.1); Troponin High Sensitivity 4.8 pg/mL (<58.9)
--- NOTE | 2024-08-02 12:53 | RAD REPORT ---
EXAMINATION: ONE VIEW CHEST XR CLINICAL INDICATION: CHEST PAIN TECHNIQUE: Frontal chest projection is submitted. Examination is limited by patient positioning and t echnique. COMPARISON: No prior exam. FINDINGS: The lungs are well inflated and clear. The heart is moderately enlarged. No displaced fractures ident ified. Moderate hiatal hernia. IMPRESSION: No acute intrathoracic abnormalities.
--- NOTE | 2024-08-02 13:36 | RAD REPORT ---
EXAMINATION: CT ABDOMEN AND PELVIS WITH CONTRAST CLINICAL INDICATION: ABD PAIN TECHNIQUE: CT abdomen and pelvis was performed, after the administration of IV contrast, [facility]. Axial, sagittal and coronal reconstructions were obtained. One or more of the following dose reduction techniques were used: Automated exposure control, adjustment of the mA and k V according to patient size, and iterative reconstruction. Unless otherwise specified, incidental findings do not require dedicated imaging follow-up. COMPARISON: No prior exam. FINDINGS: LOWER CHEST: The visualized lung bases are clear. There is moderate hiatal hernia with significant th ickening of the wall with edema in the wall of the herniated stomach. Adjacent prominent lymph node also seen. LIVER: Mild fatty liver is present. No focal lesion or biliary dilatation is seen. Cholecystectomy clips. SPLEEN: Normal size. No focal lesion. Prominent splenorenal collateral veins noted. PANCREAS: No mass, ductal dilation, or carlos-pancreatic fluid. ADRENALS: Normal; no mass. KIDNEYS: 4 mm calculus is present at the left UVJ resulting in moderate left hydronephrosis and hydro ureter. No right-sided tract stone or hydronephrosis. GASTROINTESTINAL TRACT: No evidence of free air, significant intra-abdominal free fluid, bowel obstru ction or abscess. Mild sigmoid diverticulosis coli. APPENDIX: Normal appendix. LYMPH NODES: No lymphadenopathy. MUSCULOSKELETAL: Moderate multilevel degenerative spondylosis of the lumbar spine. ADDITIONAL FINDINGS: None. IMPRESSION: 4 mm calculus left UVJ resulting in moderate left hydronephrosis. Moderate hiatal hernia which appears edematous/inflamed with surrounding lymph nodes present. Upper e ndoscopy for direct visualization would be recommended if not recently performed.
[2024-08-02 13:53] LABS: ALT/SGPT 17 U/L (13-56); AST/SGOT 15 U/L (15-37); Albumin 3.3 g/dL (3.4-5.0); Albumin/Globulin Ratio 0.9 (1.1-1.8); Alkaline Phosphatase 105 U/L (45-117); Bilirubin Total 0.4 mg/dL (0.2-1.0); Globulin 3.8 g/dL (2.3-3.5); Lipase 26 U/L (13-75); Protein, Total 7.1 g/dL (6.4-8.2)
[2024-08-02 14:07] LABS: Bilirubin Direct < 0.2 mg/dL (0-0.2); Bilirubin Indirect, Calculated 0.2 mg/dL (0.2-0.8)
--- NOTE | 2024-08-02 14:21 | EDPHYS ---
Physician Documentation [facility] Name: Dalia Pantoja Age: 68 yrs Sex: Female : 1955 Arrival Date: 08/02/2024 Time: 11:45 Bed 3 Private MD: ED Physician Valente Arambula HPI: 08/02 14:04 This 68 yrs old Female presents to ER via Ambulatory with complaints of ms3 Abdominal Pain. 14:04 68-year-old female with past medical history of GERD presents to the emergency ms3 department for abdominal pain, nausea, chest pain. Patient states her epigastric pain is radiating to her back. She rates the pain an 8/10. Patient states 2 weeks ago she had an upper endoscopy that showed peptic ulcer disease. Patient was placed on tetracycline metronidazole, pantoprazole, and meloxicam. Patient denies any alleviating or inciting factors.. Historical: - Allergies: 12:01 Tramadol HCl; iw 12:01 Codeine; iw - PMHx: 12:01 GERD; iw - Immunization history:: Adult Immunizations not up to date. - Infectious Disease History:: Denies. - Social history:: Smoking status: Patient reports the use of cigarette tobacco products, smokes one-half pack cigarettes per day. ROS: 14:04 Constitutional: Negative for fever, and chills. ms3 14:04 Skin: Negative for injury, rash, and discoloration, 14:04 Cardiovascular: Positive for chest pain, 14:04 Abdomen/GI: Positive for abdominal pain, nausea and vomiting, Exam: 14:04 Constitutional: This is a well developed, well nourished patient who is awake, alert, ms3 and in no acute distress. Cardiovascular: Regular rate and rhythm with a normal S1 and S2. No gallops, murmurs, or rubs. Normal PMI, no JVD. No pulse deficits. Respiratory: Lungs have equal breath sounds bilaterally, clear to auscultation and percussion. No rales, rhonchi or wheezes noted. No increased work of breathing, no retractions or nasal flaring. 14:04 Skin: Warm, dry with normal turgor. Normal color with no rashes, no lesions, and no evidence of cellulitis. MS/ Extremity: Pulses equal, no cyanosis. Neurovascular intact. Full, normal range of motion. 14:04 Abdomen/GI: Inspection: abdomen appears normal, Bowel sounds: normal, Palpation: moderate abdominal tenderness, in all quadrants, 14:16 ECG was reviewed by the Attending Physician. ms3 Vital Signs: 12:01 BP 171 / 83; Pulse 80; Resp 19; Temp 98.4; Pulse Ox 100% on R/A; Weight 64.41 kg; iw Height 5 ft. 3 in. ; Pain 10/10; 14:00 BP 167 / 82; Pulse 76; Resp 18; Pulse Ox 99% on R/A; ph 14:00 BP 152 / 78; Pulse 73; Resp 18; Temp 97.9; Pulse Ox 98% on R/A; ph 12:01 Body Mass Index 25.15 (64.41 kg, 160.02 cm) iw 12:01 Pain Scale: Adult iw MDM: 12:41 Medical Screening Exam initiated ms3 14:04 Differential diagnosis: abnormal EKG, acute myocardial infarction, pancreatitis, ms3 non-specific abd pain, Peptic Ulcer Disease. 14:16 HEART Score: History: Slightly Suspicious (0), ECG: Normal (0), Age: > or = 65 years ms3 (2), Risk Factors: No Risk Factors Known (0), Troponin: < or = 1 x Normal Limit (0), Total Score = 2. The patient was given aspirin in the Emergency Department. Data reviewed: vital signs, nurses notes, lab test result(s), EKG, radiologic studies, and as a result, I will discharge patient. Management of patient was discussed with the following: Miter Sawyer: Dr Franco- Patient with recent upper endoscopy. Cleared from GI standpoint. I considered the following discharge prescriptions or medication management in the emergency department Medications were administered in the Emergency Department. See MAR. Independent interpretation of the following test(s) in the Emergency Department EKG: See my EKG interpretation above. Counseling: I had a detailed discussion with the patient and/or guardian regarding the historical points, exam findings, and any diagnostic results supporting the discharge/admit diagnosis, lab results, radiology results, the need for outpatient follow up, to return to the emergency department if symptoms worsen or persist or if there are any questions or concerns that arise at home. Special discussion: I discussed with the patient/guardian in detail that at this point there is no indication for admission to the hospital. It is understood, however, that if the symptoms persist or worsen the patient needs to return immediately for re-evaluation. ED course: Discussed labs showing mild anemia, normal renal function. CT scan shows 4 mm stone at UVJ with moderate hydronephrosis. Patient to follow-up with urology in 2 to 3 days. Patient understands and agrees with plan. All questions were answered. Return precautions discussed include fevers, chills, worsening symptoms, or any other concerns. On reevaluation patient is alert and oriented x 4, no apparent distress, nontoxic-appearing, speaking full sentences.. 08/02 11:53 Order name: Basic Metabolic Panel; Complete Time: 12:51 ms3 08/02 11:53 Order name: CBC with Diff; Complete Time: 12:51 ms3 08/02 11:53 Order name: Magnesium; Complete Time: 12:51 ms3 08/02 11:53 Order name: NT PRO-BNP; Complete Time: 12:51 ms3 08/02 11:53 Order name: PT-INR; Complete Time: 12:51 ms3 08/02 11:53 Order name: Troponin HS; Complete Time: 12:51 ms3 08/02 12:42 Order name: Lipase; Complete Time: 14:09 ms3 08/02 12:42 Order name: LFT's; Complete Time: 14:09 ms3 08/02 11:53 Order name: XRAY Chest (1 view); Complete Time: 14:09 ms3 08/02 12:42 Order name: CT Abd/Pelvis - IV Contrast Only; Complete Time: 14:09 ms3 08/02 11:53 Order name: Cardiac monitoring; Complete Time: 13:23 ms3 08/02 11:53 Order name: EKG - Nurse/Tech; Complete Time: 13:23 ms3 08/02 11:53 Order name: IV Saline Lock; Complete Time: 12:33 ms3 08/02 11:53 Order name: Labs collected and sent; Complete Time: 12:33 ms3 08/02 11:53 Order name: O2 Per Protocol; Complete Time: 12:33 ms3 08/02 11:53 Order name: O2 Sat Monitoring; Complete Time: 12:33 ms3 EC:16 Rate is 78 beats/min. Rhythm is regular. QRS [place] is Normal. [place] interval is normal. ms3 Clinical impression: NSR w/ Non-specific ST/T Changes and RBBB. Interpreted by me. Reviewed by me. Administered Medications: 14:58 Drug: Flomax PO 0.4 mg PO once Route: PO; ph 14:59 Follow up: Response: No adverse reaction; Medication administered at discharge. ph 14:59 Not Given (Other Intervention Used): aspirinchewable tablet 324 mg PO once; 81 mg ph tablets x 4 Disposition Summary: 08/02/24 14:20 Discharge Ordered Notes: Location: Home ms3 Condition: Stable ms3 Diagnosis - Kidney stone L UVJ ms3 - Essential (primary) hypertension ms3 Followup: ms3 - With: Dionicio Mock MD - When: 2 - 3 days - Reason: Recheck today's complaints Discharge Instructions: - Discharge Summary Sheet ms3 - Hypertension, Adult ms3 - Kidney Stones, [id number] ms3 - DASH Eating Plan ms3 Forms: - Medication Reconciliation Form ms3 - Antibiotic Education ms3 - Prescription Opioid Use ms3 - Patient Portal Instructions ms3 - Leadership Thank You Letter ms3 Prescriptions: - tamsulosin 0.4 mg Oral capsule - take 1 capsule ORAL route every 24 hours; 15 capsule; Refills: 0, Product ms3 Selection Permitted Signatures: Dispatcher [employer] Meera Montelongo, RN Marianna Perez RN RN Valente Dominguez DO DO ms3 Corrections: (The following items were deleted from the chart) 11:54 11:54 Chest Single View+[id number].BRZ ordered. EDMS EDMS
--- NOTE | 2024-08-02 14:21 | ER ---
Nurse's Notes [facility] Name: Dalia Pantoja Age: 68 yrs Sex: Female : 1955 Arrival Date: 08/02/2024 Time: 11:45 Bed 3 Private MD: Diagnosis: Kidney stone L UVJ;Essential (primary) hypertension Presentation: 08/02 11:58 Chief complaint: Spouse and/or significant other states: having abd pain since last iw Thursday , was seen in [place] ER on for abd pain, had an endoscopy (Dr. Peña) done , she has an infection in her stomach , is on abx , was seen at Gi center today and sent here. Coronavirus screen: At this time, the client does not indicate any symptoms associated with coronavirus-19. Ebola Screen: No symptoms or risks identified at this time. Initial Sepsis Screen: Does the patient meet any 2 criteria? No. Patient's initial sepsis screen is negative. Does the patient have a suspected source of infection? No. Patient's initial sepsis screen is negative. Risk Assessment: Do you want to hurt yourself or someone else? Patient reports no desire to harm self or others. 11:58 Method Of Arrival: Ambulatory iw 11:58 Acuity: RENEE 3 iw 15:02 Onset of symptoms was August 02, 2024. ph Triage Assessment: 12:02 General: Appears uncomfortable. iw Historical: - Allergies: 12:01 Tramadol HCl; iw 12:01 Codeine; iw - PMHx: 12:01 GERD; iw - Immunization history:: Adult Immunizations not up to date. - Infectious Disease History:: Denies. - Social history:: Smoking status: Patient reports the use of cigarette tobacco products, smokes one-half pack cigarettes per day. Screenin:42 Abuse screen: Denies threats or abuse. Denies injuries from another. Nutritional ph screening: No deficits noted. Tuberculosis screening: No symptoms or risk factors identified. 14:59 [facility] ED Fall Risk Assessment (Adult) History of falling in the last 3 months, ph including since admission No falls in past 3 months (0 pts) Confusion or Disorientation No (0 pts) Intoxicated or Sedated No (0 pts) Impaired Gait No (0 pts) Mobility Assist Device Used No (0 pt) Altered Elimination No (0 pt) Score/Fall Risk Level 0 - 2 = Low Risk Oriented to surroundings, Maintained a safe environment. Assessment: 14:00 General: Appears in no apparent distress. comfortable, well groomed, Behavior is calm, ph cooperative, appropriate for age. Pain: Complains of pain in back Pain radiates to abdomen. Neuro: Level of Consciousness is awake, alert, obeys commands, Oriented to person, place, time, situation. Cardiovascular: Capillary refill < 3 seconds in bilateral fingers Patient's skin is warm and dry. Respiratory: Airway is patent Respiratory effort is even, unlabored, Respiratory pattern is regular, symmetrical. Derm: Skin is pink, warm \T\ dry. Vital Signs: 12:01 BP 171 / 83; Pulse 80; Resp 19; Temp 98.4; Pulse Ox 100% on R/A; Weight 64.41 kg; iw Height 5 ft. 3 in. ; Pain 10/10; 14:00 BP 167 / 82; Pulse 76; Resp 18; Pulse Ox 99% on R/A; ph 14:00 BP 152 / 78; Pulse 73; Resp 18; Temp 97.9; Pulse Ox 98% on R/A; ph 12:01 Body Mass Index 25.15 (64.41 kg, 160.02 cm) iw 12:01 Pain Scale: Adult iw ED Course: 11:48 Patient arrived in ED. gl 11:53 Valente Arambula DO is Attending Physician. ms3 12:00 Triage completed. iw 12:02 Arm band placed on. iw 12:15 Initial lab(s) drawn, by nj, sent to lab. Inserted saline lock: 20 gauge in right iw antecubital area, using aseptic technique. Blood collected. Flushed with 10 mL NS. 12:32 Marianna Luna, RN is Primary Nurse. ph 12:42 Patient has correct armband on for positive identification. Bed in low position. Call ph light in reach. Side rails up X 1. Pulse ox on. NIBP on. Door closed. Noise minimized. Warm blanket given. Pillow given. 12:50 XRAY Chest (1 view) In Process Unspecified. EDMS 13:14 CT Abd/Pelvis - IV Contrast Only In Process Unspecified. EDMS 14:20 Dionicio Mock MD is Referral Physician. ms3 15:02 No provider procedures requiring assistance completed. IV discontinued, intact, ph bleeding controlled, No redness/swelling at site. Pressure dressing applied. Patient maintains SpO2 saturation greater than 95% on room air. Administered Medications: 14:58 Drug: Flomax PO 0.4 mg PO once Route: PO; ph 14:59 Follow up: Response: No adverse reaction; Medication administered at discharge. ph 14:59 Not Given (Other Intervention Used): aspirinchewable tablet 324 mg PO once; 81 mg ph tablets x 4 Medication: 12:42 VIS not applicable for this client. ph Outcome: 14:20 Discharge ordered by MD. ms3 15:03 Discharged to home ambulatory, with family, ph 15:03 Condition: good 15:03 Discharge instructions given to patient, family, Instructed on discharge instructions, follow up and referral plans. medication usage, Demonstrated understanding of instructions, follow-up care, medications, Prescriptions given X 1, 15:03 Patient left the ED. ph Signatures: Dispatcher [employer] EDMS Meera Khoury RN RN iw Marianna Luna RN RN Valente Arambula, DO DO ms3 Kenya Sanders, Reg Reg gl Corrections: (The following items were deleted from the chart) 12:02 12:01 BP 171 / 83; Pulse 80bpm; Resp 19bpm; Pulse Ox 100% RA; Temp 98.4F; iw iw
[2024-08-02] MEDS ORDERED: TAMSULOSIN 0.4 MG SR CAP ONE (14:36)
[2024-08-02 15:54] VITALS: BP 152/78; TEMP 97.9; O2SAT 98
--- NOTE | 2024-08-03 12:37 | EKG ---
Test Date: 2024-08-02 Test Time: 12:38:09 [employer]: ANISHA MEASUREMENT RESULTS: Intervals: Rate: 78 WA: 168 QRSD: 138 QT: 440 QTc: 501 [place]: P: 62 WA: 168 QRS: 36 T: 33 INTERPRETIVE STATEMENTS: Normal sinus rhythm Right bundle branch block Abnormal ECG No previous ECG available for comparison Electronically Signed On 08-03-24 12:36:14 CDT by Hugh Taylor
== END 2024-08-02 15:03 | disposition home or self-care (01) ==
LOC: ER 11:45
DX: N20.0 Calculus of kidney (principal); I10 Essential (primary) hypertension; F17.210 Nicotine dependence, cigarettes, uncomplicated
CPT/HCPCS: 93005; 85025; 80048; 36415; 83735; 85610; 80076; 84484; 83690; 83880; 74177; 71045; 99284; Q9967